=== PATIENT | male | born 1980 | race Two or more races ===

== ENCOUNTER 2019-01-29 01:18 | Emergency (ER) | payer OTHER ==
[2019-01-29 01:39] VITALS: BMI 26.1
--- NOTE | 2019-01-29 02:21 | PDOC ---
History of Present Illness - General History Source: Patient, Significant Other Exam Limitations: No Limitations - History of Present Illness Timing/Duration: 24 hours Severity: moderate <Alana Miller - Last Filed: 01/29/19 07:06> <Adán Parkinson - Last Filed: 01/29/19 07:31> - General Chief Complaint: Bite Stated Complaint: RIGHT FOOT SWELLING Time Seen by Provider: 01/29/19 02:21 Past History - Suicide/Smoking/Psychosocial Hx Smoking History: Never smoked Hx Alcohol Use: No Drug/Substance Use Hx: No <Alana Miller - Last Filed: 01/29/19 07:06> <Adán Parkinson - Last Filed: 01/29/19 07:31> - Past Medical History Allergies/Adverse Reactions: Allergies Allergy/AdvReac Type Severity Reaction Status Date / Time No Known Allergies Allergy Verified 01/29/19 02:48 Home Medications: Ambulatory Orders Amoxicillin/Potassium Clav [Augmentin 875-125 Tablet] 1 each PO BID #14 tablet 01/29/19 Ibuprofen 600 mg PO QID 5 Days #20 tablet 01/29/19 Tramadol HCl 50 mg PO BID #6 tablet MDD 2 01/29/19 *Physical Exam - Vital Signs Last Vital Signs Temp Pulse Resp BP Pulse Ox 98.2 F 90 20 134/81 99 01/29/19 01:29 01/29/19 01:29 01/29/19 01:29 01/29/19 01:29 01/29/19 01:29 <Alana Miller - Last Filed: 01/29/19 07:06> - Vital Signs Last Vital Signs Temp Pulse Resp BP Pulse Ox 98.0 F 76 16 126/78 99 01/29/19 06:32 01/29/19 06:32 01/29/19 06:32 01/29/19 06:32 01/29/19 06:32 <Adán Parkinson - Last Filed: 01/29/19 07:31> Moderate Sedation - Procedure Monitoring Vital Signs: Procedure Monitoring Vital Signs Temperature 98.2 F 01/29/19 01:29 Pulse Rate 90 01/29/19 01:29 Respiratory Rate 20 01/29/19 01:29 Blood Pressure 134/81 01/29/19 01:29 O2 Sat by Pulse Oximetry (%) 99 01/29/19 01:29 <Alana Miller - Last Filed: 01/29/19 07:06> - Procedure Monitoring Vital Signs: Procedure Monitoring Vital Signs Temperature 98.0 F 01/29/19 06:32 Pulse Rate 76 01/29/19 06:32 Respiratory Rate 16 01/29/19 06:32 Blood Pressure 126/78 01/29/19 06:32 O2 Sat by Pulse Oximetry (%) 99 01/29/19 06:32 <Adán Parkinson - Last Filed: 01/29/19 07:31> ED Treatment Course - LABORATORY CBC & Chemistry Diagram: 01/29/19 02:44 01/29/19 02:44 <Alana Miller - Last Filed: 01/29/19 07:06> - LABORATORY CBC & Chemistry Diagram: 01/29/19 02:44 01/29/19 02:44 - ADDITIONAL ORDERS Additional order review: Laboratory Results 01/29/19 02:44 Sodium 140 Potassium 3.7 Chloride 105 Carbon Dioxide 27 Anion Gap 8 BUN 18 Creatinine 0.9 Creat Clearance w eGFR 94.44 Random Glucose 109 H Calcium 8.8 Total Bilirubin 0.6 AST 67 H ALT 111 H Alkaline Phosphatase 103 Total Protein 7.3 Albumin 3.8 01/29/19 02:44 RBC 4.83 MCV 86.0 MCHC 35.3 RDW 12.9 MPV 9.5 Neutrophils % 59.5 Lymphocytes % 27.6 Monocytes % 10.4 H Eosinophils % 2.0 Basophils % 0.5 - Medications Given in the ED: ED Medications Discontinued Medications Generic Name Dose Route Start Last Admin Trade Name Freq PRN Reason Stop Dose Admin Ampicillin Sodium/Sulbactam 100 mls @ 200 mls/hr 01/29/19 02:33 01/29/19 03: 03 Sodium 1.5 gm/ Sodium Chloride IVPB 01/29/19 03:02 200 mls/hr ONCE ONE Administration Vancomycin HCl 1,000 mg/ 250 mls @ 250 mls/hr 01/29/19 05:25 01/29/19 05:33 Dextrose IVPB 01/29/19 06:24 250 mls/hr ONCE ONE Administration Protocol Ketorolac Tromethamine 30 mg 01/29/19 05:41 01/29/19 06:26 Toradol Injection - IVPUSH 01/29/19 05:42 30 mg ONCE ONE Administration <Adán Parkinson - Last Filed: 01/29/19 07:31> Medical Decision Making - Medical Decision Making 01/29/19 05:39 Pt comes with spider bite to the right leg. 01/29/19 05:40 Pt has redness and heat and pain. Sed rate is normal; WBC not bad and labs normal. Pt was given unasyn, and his leg is still red and hot. He will be given a dose of vanc and he will be sent home with augmentin. 01/29/19 06:53 Pt cannot ambulate, even with crutches. He will be admitted for IV abx and ID evaluation, and possibly CT scan or MRI to r/o gas in the tissues. 01/29/19 06:55 pt will be signed out to the day team. 01/29/19 07:06 Pt has no gas in the leg soft tissues. CXR is normal Foot XR is normal. <Alana Miller - Last Filed: 01/29/19 07:06> *DC/Admit/Observation/Transfer <Alana Miller - Last Filed: 01/29/19 07:06> - Discharge Dispostion Decision to Admit order: No <TeshaAdán - Last Filed: 01/29/19 07:31> Diagnosis at time of Disposition: Cellulitis of leg - Discharge Dispostion Condition at time of disposition: Guarded - Prescriptions Prescriptions: Amoxicillin/Potassium Clav [Augmentin 875-125 Tablet] 1 each PO BID #14 tablet - Referrals Referrals: [facility] [place] [Provider Group] - Patient Instructions Printed Discharge Instructions: How to Care for an Insect Bite or Sting Additional Instructions: Take antibiotic as prescribed. Take Motrin as prescribed. Take tramadol as prescribed as needed for severe pain. Use crutches while ambulating. Ice affected leg 20 minutes on 20 minutes off. Return to ED in 2 days or follow-up at the clinic in 2 days for a wound check. Return to the emergency department immediately for any redness that is spreading up past the knee any streaking red lines uncontrollable pain or for any concerns.
[2019-01-29] MEDS ORDERED: AMPICILLIN NA/SULBACTAM NA 1.5 GM in SODIUM CHLORIDE 100 ML IVPB ONE (02:33)
[2019-01-29 03:06] LABS: BASO % 0.5 % (0-2.0); HEMATOCRIT 41.6 % (35.4-49); HEMOGLOBIN 14.7 GM/dL (11.7-16.9); LYMPH % 27.6 % (8-40); MCH 30.4 pg (25.7-33.7); MCHC 35.3 g/dl (32.0-35.9); MEAN PLT VOLUME 9.5 fl (7.5-11.1); MONO % 10.4 % (3.8-10.2); NEUT % 59.5 % (42.8-82.8); PLATELET COUNT 187 K/MM3 (134-434); RBC 4.83 M/mm3 (4.00-5.60); RDW 12.9 % (11.9-15.9); WHITE BLOOD COUNT 8.5 K/mm3 (4.0-10.0)
[2019-01-29 03:35] LABS: ALBUMIN 3.8 g/dl (3.4-5.0); ALK PHOS 103 U/L (45-117); ANION GAP 8 MMOL/L (8-16); BILIRUBIN,TOTAL 0.6 mg/dL (0.2-1); BLOOD UREA NITROGEN 18 mg/dL (7-18); CALCIUM 8.8 mg/dL (8.5-10.1); CHLORIDE 105 mmol/L (98-107); CO2 27 mmol/L (21-32); CREATININE 0.9 mg/dL (0.55-1.3); GLUCOSE,RANDOM 109 mg/dL (74-106); POTASSIUM 3.7 mmol/L (3.5-5.1); SGOT/AST 67 U/L (15-37); SGPT/ALT 111 U/L (13-61); SODIUM 140 mmol/L (136-145); TOT PROT 7.3 g/dl (6.4-8.2)
[2019-01-29] MEDS ORDERED: VANCOMYCIN 1,000 MG in DEXTROSE 5%-WATER - 250 ML IVPB ONE (05:25)
[2019-01-29] MEDS ORDERED: VANCOMYCIN 1 GRAM (PRE-DOCKED) 1,000 MG/250 ML BAG IVPB ONE (05:29)
[2019-01-29] MEDS ORDERED: KETOROLAC TROMETHAMINE 30 MG/1 ML VIAL IVPUSH ONE (05:41)
[2019-01-29] MEDS ORDERED: KETOROLAC TROMETHAMINE 30 MG/1 ML VIAL ONE (06:20)
[2019-01-29 06:33] VITALS: BP 126/78; PULSE 76; TEMP 98
[2019-01-29] MEDS ORDERED: morphine CARPU-JECT 2 MG/1 ML DISP.SYRIN IVPUSH ONE (06:53)
== END 2019-01-29 07:30 | disposition home or self-care (01) ==
LOC: JER 01:18
PROC: 3E03329 Introduction of Other Anti-infective into Peripheral Vein, Percutaneous Approach (ICD-10-PCS; principal; 2019-01-29)
PROC: 3E03329 Introduction of Other Anti-infective into Peripheral Vein, Percutaneous Approach (ICD-10-PCS; 2019-01-29)
PROC: 3E0333Z Introduction of Anti-inflammatory into Peripheral Vein, Percutaneous Approach (ICD-10-PCS; 2019-01-29)
DX: L03.115 Cellulitis of right lower limb (principal); T63.304A Toxic effect of unspecified spider venom, undetermined, initial encounter; Y92.89 Other specified places as the place of occurrence of the external cause
CPT/HCPCS: 36415; 71046-TC-FY; 73590-TC-RT-FY; 73630-TC-RT-FY; 80053; 85025; 85651; 99282-25

== ENCOUNTER 2019-01-31 11:51 | Emergency (ER) | payer OTHER | END 2019-01-31 13:49 | disposition home or self-care (01) | LOC: JERFT 11:51 ==